=== PATIENT | female | born 1990 | race African-American/Black ===

== ENCOUNTER 2017-06-16 14:22 | Emergency (ER) | payer BC ==
[~2017-06-16] VITALS: Ht 165.1 cm; Wt 107.7 kg
[2017-06-16] MEDS ORDERED: SODIUM CHLORIDE 0.9% 1,000ML IVBOLUS ONE ×2 (15:30→16:30)
[2017-06-16] MEDS ORDERED: SODIUM CHLORIDE FLUSH 10ML SYR IVF ONE (15:30)
[2017-06-16] MEDS ORDERED: ONDANSETRON 2MG/ML, 2ML IVPush ONE (15:30)
[2017-06-16] MEDS ORDERED: ONDANSETRON 2MG/ML, 2ML ONE (15:42)
[2017-06-16 15:54] LABS: HEMATOCRIT 32.7 % (34.6-47.8); WHITE BLOOD COUNT 12.5 x10^3/uL (3.4-10)
[2017-06-16 16:04] LABS: BLOOD UREA NITROGEN 10 mg/dL (7-18)
[2017-06-16] MEDS ORDERED: ACETAMINOPHEN 500 MG TABLET ONE (16:12)
[2017-06-16] MEDS ORDERED: ACETAMINOPHEN 500 MG TABLET PO ONE (16:30)
[2017-06-16 18:09] VITALS: BP 110/60
== END 2017-06-16 18:43 | disposition home or self-care (01) ==
LOC: ED 18:32
DX: B34.9 Viral infection, unspecified (principal); J20.8 Acute bronchitis due to other specified organisms; E78.5 Hyperlipidemia, unspecified
CPT/HCPCS: 36415; 71010; 80048; 81003; 82040; 85025; 93005; 96361; 96374; 99285; J2405; J7030

== ENCOUNTER → 2017-09-13 | Outpatient (CLI) | payer OTHER ==
[2017-09-13 15:28] LABS: BASOPHILS # (AUTO) 0.03 x10^3/uL (0-0.1); BASOPHILS % (AUTO) 0 % (0-1); EOSINOPHILS # (AUTO) 0.11 x10^3/uL (0-0.4); EOSINOPHILS % (AUTO) 1 % (1-7); HCT (SEDRATE) 36.6 % (34.6-47.8); LYMPHOCYTES # (AUTO) 2.07 x10^3/uL (1-3.4); LYMPHOCYTES % (AUTO) 26 % (22-44); MD NO; MEAN CORPUSCULAR HEMOGLOBIN 30.4 pg (27.0-34.8); MEAN CORPUSCULAR HGB CONC 33.5 g/dL (32.4-35.8); MEAN CORPUSCULAR VOLUME 90.8 fL (80-100); MEAN PLATELET VOLUME 7.9 fL (7.4-10.4); MONOCYTES # (AUTO) 0.66 x10^3/uL (0.2-0.8); MONOCYTES % (AUTO) 8 % (2-9); NEUTROPHILS % (AUTO) 64 % (42-75); PLATELET COUNT 410 x10^3/uL (130-400); RED BLOOD COUNT 3.95 x10^6/uL (3.82-5.3); RED CELL DISTRIBUTION WIDTH 13.3 % (9.6-15.2)
[2017-09-13 15:39] LABS: ALANINE AMINOTRANSFERASE 16 U/L (12-78); ALBUMIN 2.8 g/dL (3.4-5.0); C-REACTIVE PROTEIN, QUANT 0.32 mg/dL (0.02-0.49); CREATININE 0.71 mg/dL (0.55-1.02)
[2017-09-13 15:42] LABS: BILIRUBIN, DIRECT < 0.1 mg/dL (0.1-0.2)
[2017-09-13 15:43] LABS: ALKALINE PHOSPHATASE 149 U/L (45-117); BILIRUBIN,INDIRECT 0.1 mg/dL (0.0-2.0); BILIRUBIN,TOTAL 0.2 mg/dL (0.2-1.0); CREATINE KINASE, TOTAL 110 U/L (26-192); TOTAL PROTEIN 8.1 g/dL (6.4-8.2)
[2017-09-13 15:51] LABS: MICROSCOPIC INDICATED
[2017-09-13 16:02] LABS: CULTURE INDICATED? YES
== END | disposition home or self-care (01) ==
LOC: CFH 11:54
PROVIDERS: ATTEND Internal Medicine
DX: M79.1 Myalgia (principal); M25.50 Pain in unspecified joint; R76.0 Raised antibody titer; Z79.899 Other long term (current) drug therapy
CPT/HCPCS: 36415; 80076; 81001; 82550; 82565; 82570; 84156; 85025; 85613; 85651; 85670; 85705; 85732; 86038; 86140; 86146; 86147; 86160; 86200; 86225; 86235; 86431; 87086

== ENCOUNTER 2018-04-09 09:37 | Emergency (ER) | payer MEDICAID, OTHER ==
[~2018-04-09] VITALS: Ht 172.7 cm; Wt 104.3 kg
[2018-04-09 10:43] LABS: BASOPHILS # (AUTO) 0.02 x10^3/uL (0-0.1); BASOPHILS % (AUTO) 0 % (0-1); EOSINOPHILS # (AUTO) 0.12 x10^3/uL (0-0.4); EOSINOPHILS % (AUTO) 2 % (1-7); LYMPHOCYTES % (AUTO) 33 % (22-44); MEAN CORPUSCULAR HEMOGLOBIN 30.2 pg (27.0-34.8); MEAN CORPUSCULAR HGB CONC 33.5 g/dL (32.4-35.8); MEAN CORPUSCULAR VOLUME 90.1 fL (80-100); MEAN PLATELET VOLUME 7.4 fL (7.4-10.4); MONOCYTES # (AUTO) 0.53 x10^3/uL (0.2-0.8); MONOCYTES % (AUTO) 8 % (2-9); NEUTROPHILS # (AUTO) 3.79 x10^3/uL (1.8-6.8); NEUTROPHILS % (AUTO) 57 % (42-75); PLATELET COUNT 370 x10^3/uL (130-400); RED BLOOD COUNT 4.08 x10^6/uL (3.82-5.3); RED CELL DISTRIBUTION WIDTH 12.9 % (9.6-15.2)
[2018-04-09 10:44] LABS: MD NO
[2018-04-09 10:54] LABS: ALANINE AMINOTRANSFERASE 22 U/L (12-78); ALBUMIN 3.5 g/dL (3.4-5.0); ANION GAP 6 mmol/L (5-15); CALCIUM 8.7 mg/dL (8.5-10.1); CHLORIDE 104 mmol/L (98-107)
[2018-04-09 11:11] LABS: CREATININE 0.67 mg/dL (0.55-1.02)
[2018-04-09 11:12] LABS: ALKALINE PHOSPHATASE 69 U/L (45-117); BILIRUBIN,TOTAL 0.3 mg/dL (0.2-1.0); TOTAL PROTEIN 8.7 g/dL (6.4-8.2)
[2018-04-09 11:56] LABS: MICROSCOPIC NOT IND
[2018-04-09 12:01] LABS: CULTURE INDICATED? NO
[2018-04-09 12:16] VITALS: BP 140/77
== END 2018-04-09 12:18 | disposition home or self-care (01) ==
LOC: ED 12:15
DX: O26.892 Other specified pregnancy related conditions, second trimester (principal); J00 Acute nasopharyngitis [common cold]; R05 Cough; E78.5 Hyperlipidemia, unspecified; Z3A.18 18 weeks gestation of pregnancy
CPT/HCPCS: 36415; 71046; 76805; 80053; 81003; 84702; 85025; 93005; 99285

== ENCOUNTER 2019-10-14 15:08 | Emergency (ER) | payer OTHER, MEDICAID ==
[~2019-10-14] VITALS: Ht 167.6 cm; Wt 93.3 kg
--- NOTE | 2019-10-14 15:20 | NUR ---
PT AMBULATED TO ROOM WITH TECH. STEADY GAIT.
--- NOTE | 2019-10-14 15:24 | NUR ---
PT PRESENTED TO ED D/T COUGH AND SOB X2 WEEKS. HX OF LUPUS. DENIES N/V. DENIES FEVERS OR CHILLS.
[2019-10-14] MEDS ORDERED: PREN-3 PO (15:27)
[2019-10-14] MEDS ORDERED: HYDR200T72 PO (15:27)
[2019-10-14] MEDS ORDERED: IRON (15:27)
[2019-10-14] MEDS ORDERED: CHOL40002 PO (15:29)
[2019-10-14] MEDS ORDERED: AMPH30CA6 PO (15:29)
[2019-10-14] MEDS ORDERED: TOPI50TA35 PO (15:29)
[2019-10-14] MEDS ORDERED: KETOROLAC 30 MG/1 ML ONE (15:35)
[2019-10-14] MEDS ORDERED: ONDANSETRON ODT 4 MG ONE (15:35)
--- NOTE | 2019-10-14 15:38 | NUR ---
PT MEDICATED PER EMAR.
[2019-10-14] MEDS ORDERED: KETOROLAC 30 MG/1 ML IM ONE (16:00)
[2019-10-14] MEDS ORDERED: ONDANSETRON ODT 4 MG PO ONE (16:00)
[2019-10-14 16:04] LABS: BASOPHILS # (AUTO) 0.05 x10^3/uL (0-0.1); BASOPHILS % (AUTO) 1 % (0-1); EOSINOPHILS # (AUTO) 0.08 x10^3/uL (0-0.4); EOSINOPHILS % (AUTO) 2 % (1-7); LYMPHOCYTES # (AUTO) 2.12 x10^3/uL (1-3.4); LYMPHOCYTES % (AUTO) 46 % (22-44); MD NO; MEAN CORPUSCULAR HGB CONC 32.6 g/dL (32.4-35.8); MEAN PLATELET VOLUME 6.7 fL (7.4-10.4); MONOCYTES # (AUTO) 0.41 x10^3/uL (0.2-0.8); MONOCYTES % (AUTO) 9 % (2-9); NEUTROPHILS # (AUTO) 1.97 x10^3/uL (1.8-6.8); NEUTROPHILS % (AUTO) 43 % (42-75); PLATELET COUNT 382 x10^3/uL (130-400); RED BLOOD COUNT 3.82 x10^6/uL (3.82-5.3); RED CELL DISTRIBUTION WIDTH 13.4 % (9.6-15.2)
[2019-10-14 16:23] LABS: ANION GAP 4 mmol/L (5-15); CALCIUM 8.4 mg/dL (8.5-10.1); CHLORIDE 108 mmol/L (98-107)
--- NOTE | 2019-10-14 16:38 | NUR ---
PT DISCHARGED HOME IN A STABLE CONDITION. DC INSTRUCTIONS WERE DISCUSSED WITH PT. PT VERBALIZED UNDERSTANDING. NO FURTHER QUESTIONS OR CONCERNS EXPRESSED AT THAT TIME. PT AMBULATED WITH RN OUT OF ED. STEADY GAIT.
[2019-10-14 16:39] VITALS: BP 149/95
== END 2019-10-14 16:40 | disposition home or self-care (01) ==
LOC: ED 15:39
DX: J20.8 Acute bronchitis due to other specified organisms (principal); Z20.828 Contact with and (suspected) exposure to other viral communicable diseases; B34.9 Viral infection, unspecified
CPT/HCPCS: 36415; 71045; 80048; 85025; 96372; 99284; J1885; Q0162; U0001

== ENCOUNTER 2020-02-11 10:35 | Emergency (ER) | payer OTHER, MEDICAID ==
[~2020-02-11] VITALS: Ht 165.1 cm; Wt 98.8 kg
[~2020-02-11 10:35] MED LIST: AMPH30CA6 PO; CHOL40002 PO; HYDR200T72 PO; IRON; PREN-3 PO; TOPI50TA35 PO
[2020-02-11 10:44] VITALS: BP 126/85
[2020-02-11] MEDS ORDERED: CYCL5TAB PO (11:06)
[2020-02-11] MEDS ORDERED: PREG50CA PO (11:07)
[2020-02-11] MEDS ORDERED: DULO30CA2 PO (11:07)
[2020-02-11] MEDS ORDERED: SUMA100T3 PO (11:08)
[2020-02-11] MEDS ORDERED: EPIN0.3P3 IM (11:10)
--- NOTE | 2020-02-11 11:17 | NUR ---
DR. CASTELLON AT BEDSIDE.
[2020-02-11] MEDS ORDERED: KETOROLAC 30 MG/1 ML IVPush ONE (11:30)
[2020-02-11] MEDS ORDERED: METOCLOPRAMIDE 5 MG/ML, 2ML IVPush ONE (11:30)
[2020-02-11] MEDS ORDERED: DEXAMETHASONE 4 MG/ML, 1ML IVPush ONE (11:30)
[2020-02-11] MEDS ORDERED: DIPHENHYDRAMINE 50 MG/ML, 1ML IVPush ONE (11:30)
[2020-02-11] MEDS ORDERED: SODIUM CHLORIDE FLUSH 10ML SYR IVF ONE (11:30)
[2020-02-11] MEDS ORDERED: METOCLOPRAMIDE 5 MG/ML, 2ML ONE (11:36)
[2020-02-11] MEDS ORDERED: DEXAMETHASONE 4 MG/ML, 5ML ONE (11:36)
[2020-02-11] MEDS ORDERED: DIPHENHYDRAMINE 50 MG/ML, 1ML ONE (11:36)
[2020-02-11] MEDS ORDERED: KETOROLAC 30 MG/1 ML ONE (11:37)
--- NOTE | 2020-02-11 11:48 | NUR ---
PT MEDICATED. CALL BUTTON IN LAP.
[2020-02-11 12:07] LABS: HCG UR SG 1.025 (1.003-1.030); MICROSCOPIC NOT IND
--- NOTE | 2020-02-11 13:40 | NUR ---
Patient given discharge instructions and they have confirmed that they understand the instructions. Patient ambulatory with steady gait.
== END 2020-02-11 13:41 | disposition home or self-care (01) ==
LOC: ED 11:27
DX: G43.001 Migraine without aura, not intractable, with status migrainosus (principal); H53.149 Visual discomfort, unspecified
CPT/HCPCS: 81003; 81025; 96374; 96375; 99284; J1100; J1200; J1885; J2765

== ENCOUNTER 2020-02-15 09:02 | Outpatient (CLI) | payer OTHER, MEDICAID ==
[~2020-02-15 09:02] MED LIST changes: +CYCL5TAB PO; +DULO30CA2 PO; +EPIN0.3P3 IM; +PREG50CA PO; +SUMA100T3 PO
[2020-02-15 09:21] LABS: MEAN CORPUSCULAR HEMOGLOBIN 29.8 pg (27.0-34.8); MEAN CORPUSCULAR HGB CONC 32.7 g/dL (32.4-35.8); MEAN CORPUSCULAR VOLUME 91.2 fL (80-100); MEAN PLATELET VOLUME 6.9 fL (7.4-10.4); PLATELET COUNT 362 x10^3/uL (130-400); RED BLOOD COUNT 4.13 x10^6/uL (3.82-5.3); RED CELL DISTRIBUTION WIDTH 13.1 % (9.6-15.2)
[2020-02-15 09:33] LABS: ALANINE AMINOTRANSFERASE 38 U/L (12-78); ALBUMIN 3.5 g/dL (3.4-5.0); ANION GAP 5 mmol/L (5-15); CALCIUM 8.4 mg/dL (8.5-10.1); CHLORIDE 108 mmol/L (98-107)
[2020-02-15 09:35] LABS: ALKALINE PHOSPHATASE 68 U/L (45-117); BILIRUBIN,TOTAL 0.3 mg/dL (0.2-1.0); CREATININE 0.92 mg/dL (0.55-1.02); TOTAL PROTEIN 7.8 g/dL (6.4-8.2)
[2020-02-15 09:38] LABS: BASOPHILS # (AUTO) 0.03 x10^3/uL (0-0.1); BASOPHILS % (AUTO) 1 % (0-1); EOSINOPHILS # (AUTO) 0.21 x10^3/uL (0-0.4); EOSINOPHILS % (AUTO) 4 % (1-7); LYMPHOCYTES # (AUTO) 3.43 x10^3/uL (1-3.4); LYMPHOCYTES % (AUTO) 57 % (22-44); MD SCAN; MONOCYTES # (AUTO) 0.56 x10^3/uL (0.2-0.8); MONOCYTES % (AUTO) 9 % (2-9); NEUTROPHILS # (AUTO) 1.77 x10^3/uL (1.8-6.8); NEUTROPHILS % (AUTO) 29 % (42-75)
== END 2020-02-15 23:59 | disposition home or self-care (01) ==
LOC: LAB 09:02
PROVIDERS: ATTEND Internal Medicine
DX: Z13.220 Encounter for screening for lipoid disorders (principal); R79.9 Abnormal finding of blood chemistry, unspecified; E78.5 Hyperlipidemia, unspecified; M79.7 Fibromyalgia; R43.2 Parageusia; M32.9 Systemic lupus erythematosus, unspecified; F06.31 Mood disorder due to known physiological condition with depressive features; G43.909 Migraine, unspecified, not intractable, without status migrainosus; E55.9 Vitamin D deficiency, unspecified
CPT/HCPCS: 36415; 80053; 82652; 85025

== ENCOUNTER 2021-02-15 13:33 | Emergency (ER) | payer OTHER, MEDICAID ==
[~2021-02-15] VITALS: Ht 165.1 cm; Wt 107.0 kg
[2021-02-15 13:38] VITALS: BP 153/93
== END 2021-02-15 13:58 | disposition home or self-care (01) ==
LOC: ED 13:45
DX: L02.31 Cutaneous abscess of buttock (principal); E78.5 Hyperlipidemia, unspecified
CPT/HCPCS: 99283